=== PATIENT | female | born 2000 | race Caucasian/White ===

== ENCOUNTER 2019-06-22 15:40 | Emergency (ER) | payer BC ==
[~2019-06-22] VITALS: Ht 154.9 cm; Wt 102.3 kg
[~2019-06-22 15:40] MED LIST: NO HOME MEDICATIONS; PREDNISONE20 MG PO
[2019-06-22 15:44] VITALS: BP 132/67; TEMP 98.9
[2019-06-22] MEDS ORDERED: BACTRIM DS 8001 TAB PO (15:51)
[2019-06-22] MEDS ORDERED: IBU600 MG PO (15:51)
[2019-06-22] MEDS ORDERED: OMNICEF 300MG300 MG PO (17:53)
[2019-06-22 18:08] VITALS: PULSE 105
== END 2019-06-22 18:08 | disposition home or self-care (01) ==
LOC: COL.ER 15:40
DX: L02.31 Cutaneous abscess of buttock (principal); F17.210 Nicotine dependence, cigarettes, uncomplicated

== ENCOUNTER 2020-11-16 15:36 | Inpatient (IN) | payer BC, MEDICAID ==
[~2020-11-16] VITALS: Ht 154.9 cm; Wt 115.5 kg
[2020-11-16] VITALS (23 sets, daily range): BP systolic 94–146; BP diastolic 39–86; PULSE 86–113; TEMP 98.9–99.8
[~2020-11-16 15:36] MED LIST changes: +BACTRIM DS 8001 TAB PO; +IBU600 MG PO; +OMNICEF 300MG300 MG PO; +PRENATAL TABLET
--- NOTE | 2020-11-16 15:40 | NUR ---
1540- 39.2 G1L0 here with c/o contrations that became more intense and frequent around 1400 today. Positive for movement. Denies any LOF, or VB. Ambulatory to room. Changes into clean gown. 1546- This RN to bedside. EFM explained and placed. VS obtained. Assessment completed. 1550- SVE /-2. BOW palpated. 1608- Dr. Jordan updated on patient. See physician notification. POC reviwed with patient who verbalizes understanding. 1615- IV to left hand. Routine labs obtained. LR bolus infusing. Patient requesting epidural. Marcello Calero [employer] notified. Consent forms explained and signed. 1625- Dr. Jordan to unit and revies strips. 1635- Marcello Calero CRNA to bedside. Patient repositioned to edge of bed for epidural placement. FHR difficult to trace due to maternal position and habitus. RN remains at bedside adjusting EFM. 1641- Epidural placed and single shot at this time by Marcello Calero [employer]. See anesthesia record. Dr. Jordan to bedside and discusses plan of care with patient and family. 1647- Dr. Jordan remains at bedside. SVE per provider /-2. AROM of moderate amout thick meconium fluid. Ruthy care and patient wedge left. Dr. Jordan remains at bedside and discusses option of section. 1650- Decision to proceed with primary section at this time. Patient prepped for operative cesearean section delivery. 1710- EFM off and patient to OR suite via bed.
[2020-11-16] MEDS ORDERED: TYLENOL 500MG500 MG PO (16:03)
[2020-11-16 16:29] LABS: HEMOGLOBIN 11.5 g/dl (12.5-16.0); MEAN CELL VOLUME 90 fl (80.0-100.0); MEAN CORPUSCULAR HEMOGLOBIN 30 pg (27.0-31.0); MEAN CORPUSCULAR HGB CONC 33 g/dl (33.0-37.0); MEAN PLATELET VOLUME 11.9 fl (7.4-10.4); PLATELET COUNT 194 K/mm3 (130-400); RED BLOOD COUNT 3.86 M/mm3 (4.10-5.30); REDCELL DISTRIBUTION WIDTH-CV 13.3 % (11.5-14.5)
[2020-11-16 16:59] LABS: HEMATOCRIT 34.8 % (37.0-47.0)
[2020-11-16 17:09] LABS: BAND 12 % (0-10); LYMPHOCYTE 4 % (20.0-51.0); NEUTROPHILS 79 % (42.0-75.2); PLATELET ESTIMATE NORMAL (NORMAL)
--- NOTE | 2020-11-16 18:00 | NUR ---
1800- Fundal massage in OR. Moderate amount of lochia. 2 [place] sized clots expressed. Will continue to monitor. 1810- To PACU via bed. Monitors placed. Feng to DD. Fundus firm, midline, and bleeding minimal. Ruthy pad changed. POC reviewed.
[2020-11-16] MEDS ORDERED: PERCOCET 325 MG1 TA2 PO (18:05)
[2020-11-16] MEDS ORDERED: MOTRIN 800800 MG/TAB PO (18:05)
--- NOTE | 2020-11-16 18:40 | NUR ---
Meets PACU discharge. Will continue in PACU until able to go into [facility] to see baby.
--- NOTE | 2020-11-16 19:20 | NUR ---
To NICU per bed to see baby.
[2020-11-17 01:00] VITALS: BP 131/67; PULSE 83; TEMP 99.2
[2020-11-17 06:58] VITALS: BP 126/63; PULSE 88; TEMP 97.9
[2020-11-17 07:34] LABS: MEAN CELL VOLUME 92 fl (80.0-100.0); MEAN CORPUSCULAR HGB CONC 32 g/dl (33.0-37.0); MEAN PLATELET VOLUME 11.7 fl (7.4-10.4); PLATELET COUNT 182 K/mm3 (130-400); RED BLOOD COUNT 3.29 M/mm3 (4.10-5.30); REDCELL DISTRIBUTION WIDTH-CV 13.5 % (11.5-14.5)
[2020-11-17 07:43] LABS: HEMATOCRIT 30.2 % (37.0-47.0); HEMOGLOBIN 9.7 g/dl (12.5-16.0); MEAN CORPUSCULAR HEMOGLOBIN 29 pg (27.0-31.0)
[2020-11-17 08:11] LABS: BAND 47 % (0-10); LYMPHOCYTE 1 % (20.0-51.0); NEUTROPHILS 51 % (42.0-75.2); PLATELET ESTIMATE NORMAL (NORMAL)
[2020-11-17 11:30] VITALS: BP 109/54; PULSE 74; TEMP 97.8
[2020-11-17 15:18] VITALS: BP 114/65; PULSE 87; TEMP 98
[2020-11-17 15:52] VITALS: BP 118/54; PULSE 83; TEMP 97.6
[2020-11-17 19:30] VITALS: BP 109/50; PULSE 85; TEMP 97.9
== END 2020-11-17 20:40 | disposition home or self-care (01) | DRG 787 ==
LOC: LDRO 15:36 → OB 16:13 → LDR 16:13 → OB 11-17
PROVIDERS: ADMIT Obstetrics & Gynecology
PROC: 10D00Z1 Extraction of Products of Conception, Low, Open Approach (ICD-10-PCS; principal; 2020-11-16)
PROC: 10E0XZZ Delivery of Products of Conception, External Approach (ICD-10-PCS; 2020-11-16)
DX: O41.1230 Chorioamnionitis, third trimester, not applicable or unspecified (principal); O72.1 Other immediate postpartum hemorrhage; O36.8330 Maternal care for abnormalities of the fetal heart rate or rhythm, third trimester, not applicable or unspecified; O77.0 Labor and delivery complicated by meconium in amniotic fluid; O76 Abnormality in fetal heart rate and rhythm complicating labor and delivery; O99.214 Obesity complicating childbirth; O99.334 Smoking (tobacco) complicating childbirth; O62.1 Secondary uterine inertia; Z20.822 Contact with and (suspected) exposure to COVID-19; Z37.0 Single live birth; Z3A.39 39 weeks gestation of pregnancy; Z86.14 Personal history of Methicillin resistant Staphylococcus aureus infection
CPT/HCPCS: OP; J0290; J0690; J1100; J1580; J1885; J2250; J2405; J2590; J7120